=== PATIENT | female | born 1970 | race Caucasian/White ===

== ENCOUNTER 2022-07-21 13:23 | Emergency (ER) | payer MEDICAID ==
[~2022-07-21] VITALS: Ht 165.1 cm; Wt 60.0 kg
[2022-07-21 13:45] VITALS: BP 134/90
[2022-07-21 14:11] LABS: BASOPHILS # (AUTO) 0.1 X10'3 (0-0.2); BASOPHILS % (AUTO) 0.6 % (0-1); EOSINOPHILS # (AUTO) 0.3 X10'3 (0-0.9); EOSINOPHILS % (AUTO) 3.4 % (0-6); HEMATOCRIT 41.1 % (35.0-45.0); HEMOGLOBIN 13.6 g/dl (12.0-16.0); LYMPHOCYTES # (AUTO) 2.7 X10'3 (1.1-4.8); LYMPHOCYTES % (AUTO) 26.5 % (21-51); MEAN CORPUSCULAR HEMOGLOBIN 28.4 PG (27.0-31.0); MEAN CORPUSCULAR HGB CONC 33.2 g/dL (33.0-36.5); MEAN CORPUSCULAR VOLUME 85.7 FL (78-98); MONOCYTES # (AUTO) 0.7 X10'3 (0-0.9); NEUTROPHILS # (AUTO) 6.3 X10'3 (1.8-7.7); NEUTROPHILS % (AUTO) 62.5 % (42-75); PLATELET COUNT 273 X10'3 (140-440); RED CELL DISTRIBUTION WIDTH 14.6 % (11.5-14.5); WHITE BLOOD COUNT 10.1 X10'3 (4.5-11.0)
[2022-07-21 14:22] LABS: ALANINE AMINOTRANSFERASE 34 U/L (12-78); ALKALINE PHOSPHATASE 110 IU/L (46-116); ANION GAP 4 (8-16); ASPARTATE AMINO TRANSFERASE 31 U/L (10-37); BILIRUBIN,TOTAL 0.2 MG/DL (0.1-1.0); BLOOD UREA NITROGEN 26 MG/DL (7-18); BUN/CREATININE RATIO 26.8 (6.6-38.0); CHLORIDE 106 MMOL/L (99-107); CREATININE 0.97 MG/DL (0.40-0.90); GLUCOSE 89 MG/DL (70-104); POTASSIUM 3.9 MMOL/L (3.5-5.1); SODIUM 140 MMOL/L (135-145); eGFR 61 ML/MIN
[2022-07-21] MEDS ORDERED: DOXY-1 PO (14:25)
--- NOTE | 2022-07-21 14:27 | NUR ---
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
[2022-07-21] MEDS ORDERED: CefTRIAXone 500MG IM Kit w/LIDOcaine IM ONE (14:30)
[2022-07-21] MEDS ORDERED: azithromycin 250mg tablet PO ONE (14:30)
== END 2022-07-21 15:01 | disposition home or self-care (01) ==
LOC: ER 13:23
DX: T19.2XXA Foreign body in vulva and vagina, initial encounter (principal); F17.200 Nicotine dependence, unspecified, uncomplicated; Z56.0 Unemployment, unspecified; Z72.89 Other problems related to lifestyle; X58.XXXA Exposure to other specified factors, initial encounter; Y93.89 Activity, other specified; Y92.89 Other specified places as the place of occurrence of the external cause; Y99.8 Other external cause status
CPT/HCPCS: 36415; 80053; 85025; 96372; 99284; J0696; 99283

== ENCOUNTER 2024-12-20 16:36 | Emergency (ER) | payer MEDICAID ==
[~2024-12-20] VITALS: Ht 167.6 cm; Wt 48.3 kg
[2024-12-20 16:44] VITALS: BP 120/76; PULSE 96; RESP 18; O2SAT 97
--- NOTE | 2024-12-20 16:57 | Physician Documentation ---
HPI ~ General Chief Complaint: Tooth Problem Stated Complaint: FACE SWOLLEN/TOOTH PAIN History of Present Illness HPI Comment This is a 54-year-old female who presents with right lower dental pain and facial swelling, patient reports no fevers. Patient reports no difficulty breathing or swallowing. Medication Reconciliation Allergies: Coded Allergies: No Known Allergies (Unverified , 07/21/22) Past Medical History Past Medical History: No Pertinent History Past Surgical History: noncontributory Alcohol Use: Occasionally Drug Use: none Lives In: Home Occupation: unemployed Physical Exam Vital Signs: Temperature: 98.9, Source: Temporal, Heart Rate: 96, Respiratory Rate: 18, BP: 120/76, Pulse Oximetry: 97, Weight: 48.300 Oxygen Flow Rate: 0 Physical Exam VITALS: Reviewed and as above. GENERAL: Alert, nontoxic appearing, no apparent distress. HEENT: Poor dentition generally with a severely decayed right lower 1st molar, right mandibular tenderness to palpation and swelling without fluctuance or induration, no submandibular swelling, uvula midline, no drooling RESPIRATORY: No increased work of breathing, no respiratory distress, speaking in full clear sentences Progress Results/Orders Results/Orders Vital Signs 12/20/24 16:44 Temp 98.9 Pulse 96 Resp 18 B/P (MAP) 120/76 Pulse Ox 97 O2 Flow Rate 0 Medical Decision Making Findings MSE performed in triage and patient returned to ED lobby by nursing staff Departure Disposition: 01 HOME / SELF CARE / HOMELESS Impression: Primary Impression: Toothache Discharge Instructions: Dental Pain Additional Instructions: Follow up with a dentist as soon as possible. Please take the antibiotics as prescribed. Please take the ibuprofen with food to avoid stomach upset. Please also follow up with your primary care provider or the [facility] in the next few days. Please return to the emergency department for any new or worsening concerning symptoms. Referrals: NO PRIMARY CARE PROVIDER (PCP) Prescriptions Amox Tr/Potassium Clavulanate 875/125 MG (Augmentin 875/125 MG) 875 Mg-125 Mg Tablet 1 TAB PO Q12H for 10 Days, #20 TAB Prov: WILDA LOPEZ [facility] 12/20/24 Ibuprofen (Ibuprofen) 800 Mg Tablet 1 TAB PO Q8H for pain for 10 Days, #30 TAB 0 Refills Prov: WILDA LOPEZ [facility] 12/20/24 Education Educated: Patient Educated regarding: diagnosis, treatment, prognosis, need for follow up WILDA LOPEZ [facility] Dec 20, 2024 16:57
[2024-12-20] MEDS ORDERED: AMOX-580 PO (17:06)
[2024-12-20] MEDS ORDERED: IBUP-1986 PO (17:06)
[2024-12-20 17:20] VITALS: TEMP 98.9
== END 2024-12-20 17:21 | disposition home or self-care (01) ==
LOC: ER 16:37
DX: K08.89 Other specified disorders of teeth and supporting structures (principal); Z56.0 Unemployment, unspecified; Z72.89 Other problems related to lifestyle
CPT/HCPCS: 99283

== ENCOUNTER 2025-01-08 09:48 | Emergency (ER) | payer MEDICAID, OTHER ==
[~2025-01-08] VITALS: Ht 167.6 cm; Wt 58.0 kg
[~2025-01-08 09:48] MED LIST: IBUP-1986 PO
[2025-01-08 10:03] VITALS: BP 138/82; PULSE 94; RESP 18; TEMP 97.5; O2SAT 99
--- NOTE | 2025-01-08 11:43 | Physician Documentation ---
HPI ~ General Chief Complaint: Tooth Problem Stated Complaint: TOOTH ABSCESS Time Seen by MD: 10:21 OK to notify your PCP?: Yes Primary Medical Doctor: none Source: patient Mode of Arrival: POV Exam Limitations: no limitations History of Present Illness HPI Comment 54-year-old female with chief complaint right upper molar dental pain as well as pain in her right upper front tooth where she has known decay. She states that she has known that she has needed to get these teeth taken care of for quite some time but all of a sudden they just started causing her pain. She was seen here and got on antibiotics about two weeks ago which resolved symptoms but once she completed the antibiotics the symptoms returned. Patient denies fever, chills, sore throat, ear pain, chest pain, shortness of breath. Medication Reconciliation Allergies: Coded Allergies: No Known Allergies (Unverified , 07/21/22) Scheduled Amoxicillin (Amoxicillin), 1 CAP PO Q8H Ibuprofen (Ibuprofen), 1 TAB PO Q8H Past Medical History Past Medical History: No Pertinent History Past Surgical History: noncontributory Alcohol Use: Occasionally Drug Use: none Lives In: Home Occupation: unemployed Review of Systems All Other Systems at this time: Reviewed and Negative Physical Exam Vital Signs: Temperature: 97.5, Source: Temporal, Heart Rate: 94, Respiratory Rate: 18, BP: 138/82, Pulse Oximetry: 99, Weight: 58.000 Oxygen Flow Rate: 0 Physical Exam General Appearance: Alert, WD/WN. NAD. HEENT: NCAT, PERRL, EOMI. No facial swelling front upper tooth where the tooth meets the gingiva there is a hole, right eye that all lower molar avulsed at the gumline surrounding gingiva is erythematous area is tender, no edema, posterior pharyngeal wall normal. Neck: Supple, trachea midline. No cervical lymphadenopathy. Cardiovascular: RRR. No m/r/g. Lungs: CTAB. Breathing unlabored Extremities: Normal inspection. No edema. Skin: Warm/dry, normal color Neurological: Alert and oriented x4, normal gait. Psychiatric: Affect congruent with mood. Progress Results/Orders Results/Orders Vital Signs 01/08/25 10:03 Temp 97.5 Pulse 94 Resp 18 B/P (MAP) 138/82 Pulse Ox 99 O2 Flow Rate 0 Medical Decision Making Differential Dx:Considerations: Include: Alveolar fracture, Alveolar osteitis, ANUG, Facial Cellulitis, Periapical abscess, Peridontal abscess, Post-extraction bleeding, Pulpitis, Tooth avulsion, Tooth eruption, Tooth Fracture, Trigeminal neuralgia, Tooth subluxation Departure Time of Disposition: 11:41 Disposition: HOME / SELF CARE / HOMELESS Impression: Primary Impression: Dental caries Additional Impression: Toothache Condition: Stable Discharge Instructions: Dental Pain Additional Instructions: I recommend you contact [facility] see if they take your insurance as well as [facility] and see if they have any resources for you It is very hard to get into a dentist so make sure you are persistent with this as the symptoms will continue to return until the underlying problem is addressed Referrals: NO PRIMARY CARE PROVIDER (PCP) Prescriptions Amoxicillin (Amoxicillin) 500 Mg Capsule 1 CAP PO Q8H for 10 Days, #30 CAP Prov: KLEVER BRAMBILA 01/08/25 Education Educated: Patient Educated regarding: diagnosis, treatment, need for follow up Signature Scribe Signature: x Attestation: KLEVER Recinos Jan 08, 2025 11:43
[2025-01-08] MEDS ORDERED: AMOX500C4 PO (11:45)
== END 2025-01-08 12:05 | disposition home or self-care (01) ==
LOC: ER 09:49
DX: K02.9 Dental caries, unspecified (principal)
CPT/HCPCS: 99283